=== PATIENT | female | born 1975 | race Caucasian/White ===

== ENCOUNTER 2022-12-21 17:42 | Emergency (ER) | payer MEDICAID ==
[~2022-12-21] VITALS: Ht 160 cm; Wt 59.1 kg
[2022-12-21 17:44] VITALS: BP 108/64; PULSE 68; RESP 16; TEMP 98.3
[2022-12-21] MEDS ORDERED: LAMO-24 PO (17:46)
[2022-12-21] MEDS ORDERED: BUSP15 PO (17:46)
[2022-12-21] MEDS ORDERED: ACETAMINOPHEN 500 MG TABLET PO ONE (19:45)
[2022-12-21] MEDS ORDERED: IBUPROFEN 600 MG TABLET PO ONE (19:45)
[2022-12-21] MEDS ORDERED: ONDA-104 PO (21:05)
[2022-12-21] MEDS ORDERED: IBUP-1554 PO (21:05)
[2022-12-21] MEDS ORDERED: ACET-66 PO (21:05)
[2022-12-21] MEDS ORDERED: HYDROCODONE/ACETAMINOPHEN 5-325 MG TABLET PO ONE (21:15)
[2022-12-21] MEDS ORDERED: ONDANSETRON HCL 4 MG TABLET PO ONE (21:15)
== END 2022-12-21 22:05 | disposition home or self-care (01) ==
LOC: EMS 17:44
DX: S00.93XA Contusion of unspecified part of head, initial encounter (principal); S10.93XA Contusion of unspecified part of neck, initial encounter; F31.9 Bipolar disorder, unspecified; F10.21 Alcohol dependence, in remission; X58.XXXA Exposure to other specified factors, initial encounter; Y93.89 Activity, other specified; Y92.89 Other specified places as the place of occurrence of the external cause; Y99.8 Other external cause status
CPT/HCPCS: 99284; 70450; 72125; Q0162